=== PATIENT | female | born 1975 | race Caucasian/White ===

== ENCOUNTER 2018-05-07 10:35 | Emergency (ER) | payer OTHER ==
[~2018-05-07] VITALS: Ht 170.2 cm; Wt 86.2 kg
[~2018-05-07 10:35] MED LIST: CIPRODEX OTIC7.5 ML OTIC; ERYTHROMYCIN E3.5 G1 OPHTHALMIC; NOHOMEMEDICATIONS; NORCO 5-325 TA1 EACH PO; VICODIN 5-3001 EACH PO
[2018-05-07] MEDS ORDERED: MELATONIN1 MG PO (10:44)
[2018-05-07] MEDS ORDERED: MAGOX 400400 MG PO (10:44)
[2018-05-07] MEDS ORDERED: KEFLEX500 M1 PO (12:14)
[2018-05-07] MEDS ORDERED: BACTRIM DS TAB1 EACH PO (12:14)
[2018-05-07 12:35] VITALS: BP 128/70
== END 2018-05-07 12:36 | disposition home or self-care (01) ==
LOC: M.ERS 10:35
DX: L72.3 Sebaceous cyst (principal); Z90.710 Acquired absence of both cervix and uterus

== ENCOUNTER 2019-10-14 12:48 | Emergency (ER) | payer OTHER ==
[~2019-10-14] VITALS: Ht 172.7 cm; Wt 104.3 kg
[~2019-10-14 12:48] MED LIST changes: +BACTRIM DS TAB1 EACH PO; +KEFLEX500 M1 PO; +MAGOX 400400 MG PO; +MELATONIN1 MG PO
[2019-10-14] MEDS ORDERED: MAGNESIUM250 M1 PO (12:57)
[2019-10-14] MEDS ORDERED: ALDACTONE100 MG PO (12:57)
[2019-10-14] MEDS ORDERED: IBUPROFEN 800800 M1 PO (15:29)
[2019-10-14] MEDS ORDERED: TRAMADOL 50 MG50 MG PO (15:29)
[2019-10-14 15:51] VITALS: BP 127/77
== END 2019-10-14 15:53 | disposition home or self-care (01) ==
LOC: M.ERS 12:48
DX: S93.491A Sprain of other ligament of right ankle, initial encounter (principal); Z98.51 Tubal ligation status; Z90.710 Acquired absence of both cervix and uterus; W17.89XA Other fall from one level to another, initial encounter; Y93.56 Activity, jumping rope; Y92.89 Other specified places as the place of occurrence of the external cause; Y99.8 Other external cause status